=== PATIENT | male | born 2000 | race Two or more races ===

== ENCOUNTER 2021-02-27 09:14 | Emergency (ER) | payer OTHER ==
[~2021-02-27] VITALS: Ht 180.3 cm; Wt 74.6 kg
[2021-02-27] MEDS ORDERED: IV NORMAL SALINE 1000ML BAG 1,000 ML IV SCH (09:45)
--- NOTE | 2021-02-27 09:46 | PHYS DOC ---
Past Medical History Past Medical History: No Pertinent History Past Surgical History: No Surgical History Smoking Status: Current Every Day Smoker Additional Information: VAPES Alcohol Use: None General Adult EDM: Chief Complaint: ABDOMINAL PAIN HPI: HPI: Patient is a 20 year old male who presented to ER due to epigastric and periumbilical abdominal pain started at 3 AM this morning associated with some nausea. Patient denies any cough or fever. Patient denies any diarrhea. Patient denies any urinary symptoms. Patient denies drinking alcohol patient said he never had this pain before. Review of Systems: Review of Systems: Constitutional: Denies fever or chills. [] Eyes: Denies change in visual acuity. [] HENT: Denies nasal congestion or sore throat. [] Respiratory: Denies cough or shortness of breath. [] Cardiovascular: Denies chest pain or edema. [] GI: Positive for abdominal pain with nausea, no vomiting, no diarrhea : Denies dysuria. [] Musculoskeletal: Denies back pain or joint pain. [] Integument: Denies rash. [] Neurologic: Denies headache, focal weakness or sensory changes. [] Endocrine: Denies polyuria or polydipsia. [] Lymphatic: Denies swollen glands. [] Psychiatric: Denies depression or anxiety. [] Heart Score: C/O Chest Pain: N/A Risk Factors: Risk Factors: DM, Current or recent (<one month) smoker, HTN, HLP, family history of CAD, obesity. Risk Scores: Score 0 - 3: 2.5% MACE over next 6 weeks - Discharge Home Score 4 - 6: 20.3% MACE over next 6 weeks - Admit for Clinical Observation Score 7 - 10: 72.7% MACE over next 6 weeks - Early Invasive Strategies Current Medications: Current Medications Medications (Trade) Dose Ordered Sig/Brain Start Time Stop Time Status Last Admin Dose Admin Sodium Chloride 1,000 ml @ 1,000 mls/hr Q1H 02/27/21 09:45 02/27/21 10:44 Allergies: Allergies: Allergies Coded Allergies Type Severity Reaction Last Updated Verified No Known Drug Allergies 02/27/21 No Physical Exam: PE: Constitutional: Well developed, well nourished, no acute distress, non-toxic appearance. [] HENT: Normocephalic, atraumatic, bilateral external ears normal, oropharynx moist, no oral exudates, nose normal. [] Eyes: PERRLA, EOMI, conjunctiva normal, no discharge. [] Neck: Normal range of motion, no tenderness, supple, no stridor. [] Cardiovascular:Heart rate regular rhythm, no murmur [] Lungs & Thorax: Bilateral breath sounds clear to auscultation [] Abdomen: Bowel sounds normal, soft, There is tenderness in epigastric and periumbilical area, no masses, no pulsatile masses. [] Skin: Warm, dry, no erythema, no rash. [] Back: No tenderness, no CVA tenderness. [] Extremities: No tenderness, no cyanosis, no clubbing, ROM intact, no edema. [] Neurologic: Alert and oriented X 3, normal motor function, normal sensory function, no focal deficits noted. [] Psychologic: Affect normal, judgement normal, mood normal. [] Current Patient Data: Labs: Laboratory Tests Test 02/27/21 09:22 02/27/21 10:40 Urine Collection Type Unknown Urine Color Yellow Urine Clarity Clear Urine pH 6.5 Urine Specific [place] 1.020 Urine Protein Negative mg/dL Urine Glucose (UA) Negative mg/dL Urine Ketones (Stick) Negative mg/dL Urine Blood Negative Urine Nitrite Negative Urine Bilirubin Negative Urine Urobilinogen Dipstick 0.2 mg/dL Urine Leukocyte Esterase Negative Urine RBC 0 /HPF Urine WBC 0 /HPF Urine Squamous Epithelial Cells Few /LPF Urine Bacteria 0 /HPF White Blood Count 8.0 x10^3/uL Red Blood Count 5.22 x10^6/uL Hemoglobin 15.9 g/dL Hematocrit 46.1 % Mean Corpuscular Volume 88 fL Mean Corpuscular Hemoglobin 30 pg Mean Corpuscular Hemoglobin Concent 34 g/dL Red Cell Distribution Width 13.3 % Platelet Count 192 x10^3/uL Neutrophils (%) (Auto) 44 % Lymphocytes (%) (Auto) 40 % Monocytes (%) (Auto) 13 % Eosinophils (%) (Auto) 2 % Basophils (%) (Auto) 1 % Neutrophils # (Auto) 3.5 x10^3/uL Lymphocytes # (Auto) 3.2 x10^3/uL Monocytes # (Auto) 1.0 x10^3/uL Eosinophils # (Auto) 0.2 x10^3/uL Basophils # (Auto) 0.0 x10^3/uL Sodium Level 141 mmol/L Potassium Level 4.2 mmol/L Chloride Level 105 mmol/L Carbon Dioxide Level 28 mmol/L Anion Gap 8 Blood Urea Nitrogen 15 mg/dL Creatinine 0.9 mg/dL Estimated GFR (Cockcroft-Gault) 106.5 BUN/Creatinine Ratio 17 Glucose Level 95 mg/dL Calcium Level 9.4 mg/dL Magnesium Level 2.2 mg/dL Total Bilirubin 0.4 mg/dL Aspartate Amino Transf (AST/SGOT) 21 U/L Alanine Aminotransferase (ALT/SGPT) 19 U/L Alkaline Phosphatase 90 U/L Total Protein 7.1 g/dL Albumin 3.9 g/dL Albumin/Globulin Ratio 1.2 Lipase 76 U/L Current Medications Medications (Trade) Dose Ordered Sig/Brain Route PRN Reason Start Time Stop Time Status Last Admin Dose Admin Sodium Chloride 1,000 ml @ 1,000 mls/hr Q1H IV 02/27/21 09:45 02/27/21 10:44 DC 02/27/21 10:43 Iohexol (Omnipaque 300 Mg/ml) 75 ml 1X ONCE IV 02/27/21 11:30 02/27/21 11:31 DC Info (CONTRAST GIVEN -- Rx MONITORING) 1 each PRN DAILY PRN MC SEE COMMENTS 02/27/21 11:30 03/01/21 11:29 Famotidine (Pepcid Vial) 20 mg 1X ONCE IVP 02/27/21 11:30 02/27/21 11:31 DC 02/27/21 11:45 Multi-Ingredient Mouthwash/Gargle (Gi Cocktail) 20 ml 1X ONCE SWSW 02/27/21 12:00 02/27/21 12:01 DC 02/27/21 11:45 Vital Signs: Vital Signs Date Time Temp Pulse Resp B/P (MAP) Pulse Ox O2 Delivery O2 Flow Rate FiO2 02/27/21 09:28 97.3 59 20 142/59 99 Room Air 97.3 EKG: EKG: [] Radiology/Procedures: Radiology/Procedures: [][facility] [address] [place] [address] IMAGING REPORT Signed PATIENT: ROSY AGUILAR ACCOUNT: [id number] : 2000 LOCATION: ER AGE: 20 SEX: M EXAM STATUS: REG ER ORD. PHYSICIAN: BERTRAND HUYNH DO REASON: periumbilical abdominal pain since 3 am today PROCEDURE: CT ABD PELV W/ IV CONTRST ONLY EXAMINATION: CT abdomen and pelvis with IV contrast. INDICATION:20 years, Male, periumbilical abdominal pain since 3:00 AM. TECHNIQUE: Axial CT images of the abdomen and pelvis were obtained. Coronal and sagittal reformatted performed. COMPARISON: None. Exposure: One or more of the following individualized dose reduction techniques were utilized for this examination: 1. Automated exposure control 2. Adjustment of the mA and/or kV according to patient size 3. Use of iterative reconstruction technique. FINDINGS: LOWER CHEST: Unremarkable ABDOMEN/PELVIS: Liver, gallbladder, biliary ducts, spleen, pancreas, adrenals and kidneys are unremarkable. No bowel obstruction or wall thickening. Normal appendix. Normal caliber abdominal aorta. Mesenteric arteries and portal vein are patent. No lymphadenopathy in the abdomen or pelvis by size criteria. No pneumoperitoneum or ascites. Unremarkable urinary bladder and prostate. No pelvic masses. MUSCULOSKELETAL: No acute osseous process. IMPRESSION: No acute abnormality in the abdomen or pelvis. Electronically signed by: Kaylee Rivera MD (02/27/2021 11:42 AM) [id number] DICTATED and SIGNED BY: KAYLEE RIVERA MD DATE: 02/27/21 [id number] Course & Med Decision Making: Course & Med Decision Making Pertinent Labs and Imaging studies reviewed. (See chart for details) Patient is a 20-year-old male who present to ER due to epigastric, CT scan abdomen pelvis did not show any acute problem, levels were normal. Patient symptoms are consistent with acute gastritis. Patient will prescribe Carafate an d Prilosec to take home. Patient was discharged home in stable condition. Patient will need to follow-up with family physician for reevaluation , he was amenable to plan of care Davie Disclaimer: Davie Disclaimer: This electronic medical record was generated, in whole or in part, using a voice recognition dictation system. Departure Departure Impression: Primary Impression: Gastritis Disposition: HOME / SELF CARE / HOMELESS Condition: IMPROVED Patient Instructions: Gastritis, Adult Additional Instructions: Thank you for visiting our Emergency Department. We appreciate you trusting us with your care. If any additional problems come up don't hesitate to return to visit us. Please follow up with your primary care provider so they can plan additional care if needed and know about the problem that you had. If symptoms worsen come back to the Emergency Department. Any concerning symptoms that start such as chest pain, shortness of air, weakness or numbness on one side of the body, running high fevers or any other concerning symptoms return to the ER. Please follow up with [facility] this week. [address], [address] [place] [address] Phone number: [phone] Scripts Omeprazole Magnesium (PRILOSEC OTC) 20 Mg Tablet. 1 TAB PO DAILY for 30 Days, #30 TAB 0 Refills Prov: BERTRAND HUYNH DO 02/27/21 Sucralfate (CARAFATE) 1 Gm Tablet 1 TAB PO QID for 14 Days, #56 TAB 0 Refills Prov: BERTRAND HUYNH DO 02/27/21 BERTRAND HUYNH DO Feb 27, 2021 09:46
[2021-02-27 10:18] LABS: BILIRUBIN,URINE NEGATIVE (NEG); CLARITY,URINE CLEAR; COLOR,URINE YELLOW; NITRITE,URINE NEGATIVE (NEG); PH,URINE 6.5 (<5.0-8.0); PROTEIN,URINE NEGATIVE (NEG-TRACE); UROBILINOGEN,URINE 0.2 mg/dL (0.2 mg/dL)
[2021-02-27 10:43] LABS: BACTERIA,URINE 0 /HPF (0-FEW); RBC,URINE 0 /HPF (0-2); WBC,URINE 0 /HPF (0-4)
[2021-02-27 11:07] LABS: BASO % 1 % (0-3); EOS # 0.2 x10^3/uL (0.0-0.7); EOS % 2 % (0-3); HEMATOCRIT 46.1 % (39.0-53.0); HEMOGLOBIN 15.9 g/dL (13.0-17.5); LYMPH # 3.2 x10^3/uL (1.0-4.8); LYMPH % 40 % (24-48); MEAN CORPUSCULAR HEMOGLOBIN 30 pg (25-35); MEAN CORPUSCULAR HGB CONC 34 g/dL (31-37); MEAN CORPUSCULAR VOLUME 88 fL (79-100); MONO % 13 % (0-9); NEUT # 3.5 x10^3/uL (1.8-7.7); NEUT % 44 % (31-73); PLATELET COUNT 192 x10^3/uL (140-400); RED BLOOD COUNT 5.22 x10^6/uL (4.30-5.70); RED CELL DISTRIBUTION WIDTH 13.3 % (11.5-14.5)
[2021-02-27 11:12] LABS: CALCIUM 9.4 mg/dL (8.5-10.1); CREATININE 0.9 mg/dL (0.7-1.3); GFR 106.5; POTASSIUM 4.2 mmol/L (3.5-5.1)
[2021-02-27 11:21] LABS: ALBUMIN 3.9 g/dL (3.4-5.0); ALBUMIN/GLOBULIN RATIO 1.2 (1.0-1.7); MAGNESIUM 2.2 mg/dL (1.8-2.4); TOTAL BILIRUBIN 0.4 mg/dL (0.2-1.0); TOTAL PROTEIN 7.1 g/dL (6.4-8.2)
[2021-02-27] MEDS ORDERED: FAMOTIDINE 20 MG/2 ML VIAL IVP ONE (11:30)
[2021-02-27] MEDS ORDERED: CONTRAST GIVEN. MC PRN (11:30)
[2021-02-27] MEDS ORDERED: IOHEXOL 300 MG/ML 100ML VIAL. IV ONE (11:30)
--- NOTE | 2021-02-27 11:44 | RAD ---
EXAMINATION: CT abdomen and pelvis with IV contrast. INDICATION:20 years, Male, periumbilical abdominal pain since 3:00 AM. TECHNIQUE: Axial CT images of the abdomen and pelvis were obtained. Coronal and sagittal reformatted performed. COMPARISON: None. Exposure: One or more of the following individualized dose reduction techniques were utilized for thi s examination: 1. Automated exposure control 2. Adjustment of the mA and/or kV according to patient size 3. Use of iterative reconstruction technique. FINDINGS: LOWER CHEST: Unremarkable ABDOMEN/PELVIS: Liver, gallbladder, biliary ducts, spleen, pancreas, adrenals and kidneys are unremarkable. No bowel obstruction or wall thickening. Normal appendix. Normal caliber abdominal aorta. Mesenteric arteries and portal vein are patent. No lymphadenopathy in the abdomen or pelvis by size criteria. No pneumope ritoneum or ascites. Unremarkable urinary bladder and prostate. No pelvic masses. MUSCULOSKELETAL: No acute osseous process. IMPRESSION: No acute abnormality in the abdomen or pelvis. Electronically signed by: Perico Rivera MD (02/27/2021 11:42 AM) [id number]
[2021-02-27] MEDS ORDERED: LIDO:MAALOX 1:1 20 ML SINGLE DOSE. SWSW ONE (12:00)
[2021-02-27] MEDS ORDERED: OMEP20TA63 PO (12:38)
[2021-02-27] MEDS ORDERED: SUCR1TAB35 PO (12:38)
[2021-02-27 12:42] VITALS: BP 107/59
== END 2021-02-27 12:55 | disposition home or self-care (01) ==
LOC: ER 09:14
DX: K29.70 Gastritis, unspecified, without bleeding (principal); F17.200 Nicotine dependence, unspecified, uncomplicated
CPT/HCPCS: 36415; 74177; 80053; 81001; 83690; 83735; 85025; 96361; 96374; 99285; J3490; J7030

== ENCOUNTER 2021-03-01 19:15 | Emergency (ER) | payer OTHER ==
[~2021-03-01] VITALS: Ht 180.3 cm; Wt 70.0 kg
[~2021-03-01 19:15] MED LIST: OMEP20TA63 PO; SUCR1TAB35 PO
[2021-03-01] MEDS ORDERED: DIPH,PERTUSS(ACELL),TET VAC/PF 0.5 ML SYRINGE. VAX IM ONE (22:00)
[2021-03-01] MEDS ORDERED: IBUPROFEN 200 MG TABLET. PO ONE (22:00)
--- NOTE | 2021-03-01 22:18 | RAD ---
Examination: 2 views of the left humerus and 3 views of the left wrist HISTORY: History of fall COMPARISON: None available FINDINGS: The alignment of the left humerus grossly appears unremarkable. The alignment of the carpal joints gr ossly appears unremarkable. There is no acute fracture or dislocation identified. IMPRESSION: No acute osseous findings Electronically signed by: Alex Strickland MD (03/01/2021 10:15 PM) [id number]
[2021-03-01] MEDS ORDERED: BACITRACIN TOPICAL OINT PACKET. TP ONE (22:30)
--- NOTE | 2021-03-01 23:40 | PHYS DOC ---
Past Medical History Past Medical History: No Pertinent History (INDY CANO APRN) Past Surgical History: No Surgical History (INDY CANO APRN) Smoking Status: Current Every Day Smoker Alcohol Use: None (INDY CANO APRN) General Adult EDM: Chief Complaint: ELBOW PROBLEM HPI: HPI: Patient is a 20 year old male who presents emergency department with chief complaint of left upper arm and left wrist pain after tripping and falling out of his front door at approximately 1700 this evening. Patient denies numbness or tingling to the arm, rates his pain a 7 out of 10 pain, states he does have a skin scratch on his left shoulder, states his last tetanus immunization was greater than 5 years ago, states he did not take any pain medication prior to arrival to the emergency department today. Patient denies hitting his head, denies loss of consciousness, denies pain or injury to any other part of his body. Patient denies any other physical complaints or physical concerns, patient denies smoking cigarettes, drinking alcohol, or illicit drug use. (INDY CANO APRN) Review of Systems: Review of Systems: 14 body systems of review of systems have been reviewed. See HPI for pertinent positives and negative responses, otherwise all other systems are negative, nonpertinent or noncontributory. Constitutional: Negative except as outlined in HPI above. Skin: Negative except as outlined in HPI above. Eyes: Negative except as outlined in HPI above. HENT: Negative except as outlined in HPI above. Respiratory: Negative except as outlined in HPI above. Cardiovascular: Negative except as outlined in HPI above. GI: Negative except as outlined in HPI above. : Negative except as outlined in HPI above. Musculoskeletal: Negative except as outlined in HPI above. Integument: Negative except as outlined in HPI above. Neurologic: Negative except as outlined in HPI above. Endocrine: Negative except as outlined in HPI above. Lymphatic: Negative except as outlined in HPI above. Psychiatric: Negative except as outlined in HPI above. (INDY CANO APRN) Heart Score: C/O Chest Pain: No Risk Factors: Risk Factors: DM, Current or recent (<one month) smoker, HTN, HLP, family history of CAD, obesity. Risk Scores: Score 0 - 3: 2.5% MACE over next 6 weeks - Discharge Home Score 4 - 6: 20.3% MACE over next 6 weeks - Admit for Clinical Observation Score 7 - 10: 72.7% MACE over next 6 weeks - Early Invasive Strategies (INDY CANO APRN) Current Medications: Current Medications Medications (Trade) Dose Ordered Sig/Brain Start Time Stop Time Status Last Admin Dose Admin Bacitracin (Bacitracin Zinc Oint Pkt) 1 pkt 1X ONCE 03/01/21 22:30 03/01/21 22:33 DC 03/01/21 22:38 1 PKT Diphtheria/ Tetanus/Acell Pertussis (ADACEL TDap SYRINGE) 0.5 ml ONCE ONCE 03/01/21 22:00 03/01/21 22:01 DC 03/01/21 22:10 0.5 ML Ibuprofen (Motrin) 600 mg 1X ONCE 03/01/21 22:00 03/01/21 22:01 DC 03/01/21 22:11 600 MG (INDY CANO APRN) Allergies: Allergies: Allergies Coded Allergies Type Severity Reaction Last Updated Verified No Known Drug Allergies 02/27/21 No (INDY CANO APRN) Physical Exam: PE: Constitutional: Well developed, well nourished, no acute distress, non-toxic appearance. 20-year-old male in no apparent distress. HENT: Normocephalic, atraumatic. Eyes: Conjunctiva normal, no discharge. Neck: Normal range of motion, no stridor. Cardiovascular: No cyanosis appreciated, distal cap refill less than 2 seconds. Lungs & Thorax: Patient is in no respiratory distress, no audible adventitious lung sounds appreciated. Abdomen: Nontender, no abnormalities noted. Skin: Warm, dry, no erythema, no rash. Abrasion to left anterior shoulder. No bleeding appreciated, no infectious process appreciated. Back: No tenderness, no deformities. Extremities: No tenderness, no cyanosis, no clubbing, ROM intact, no edema. Pain to palpation of the distal aspect of left humerus, no deformity appreciated, no bruising appreciated, no swelling or edema appreciated, no pain with AROM/PROM of shoulder joint elbow joint wrist joint or finger joints of the left upper extremity, patient does complain of pain to the left wrist with palpation along the proximal anterior aspect, no deformity, no swelling, no bruising or ecchymosis appreciated. Distal cap refill less than 2 seconds, 2+ radial pulses. Neurologic: Alert and oriented X 3, normal motor function, normal sensory function, no focal deficits noted. Psychologic: Affect normal, judgement normal, mood normal. (INDY CANO APRN) Current Patient Data: Vital Signs: Vital Signs Date Time Temp Pulse Resp B/P (MAP) Pulse Ox O2 Delivery O2 Flow Rate FiO2 03/01/21 21:35 75 18 138/62 (87) 97 Room Air 03/01/21 21:30 98.2 98.2 (INDY CANO APRN) EKG: EKG: [] (INDY CANO APRN) Radiology/Procedures: Radiology/Procedures: [] (INDY CANO APRN) Course & Med Decision Making: Course & Med Decision Making Pertinent Labs and Imaging studies reviewed. (See chart for details) 20-year-old male, vital signs reviewed, presents emergency department after a stumble and fall out of his front door at approximately 730 this evening. Physical examination concerning for bony injury versus contusion of left upper extremity humerus and wrist, abrasion to left shoulder. The patient's tetanus status will be brought up-to-date today in the emergency department with Adacel/Tdap, cleanse abrasion and apply bacitracin ointment with bandage, x-ray left humerus and wrist. Patient given 600 mg ibuprofen for pain. X-ray imaging none concerning for acute fracture, discussed with patient most likely contusion from fall, will order ice pack, Jluis wrap, recommended RICE therapy, follow-up with PCP this week. Patient gave verbal understanding discharge home instructions, follow-up PCP, return to ER precautions or concerns, had no further questions or concerns and was discharged home without incident. (INDY CANO APRN) Course & Med Decision Making Patients Care and treatment plan provided by ER Nurse Practitioner. I was available for consult. Patient's chart reviewed. (MARTÍN BARTON DO) Davie Disclaimer: Davie Disclaimer: This electronic medical record was generated, in whole or in part, using a voice recognition dictation system. (INDY CANO APRN) Departure Departure Impression: Primary Impression: Contusion of left upper arm Qualified Codes: S40.022A - Contusion of left upper arm, initial encounter Additional Impressions: Abrasion of left shoulder Qualified Codes: S40.212A - Abrasion of left shoulder, initial encounter Contusion of left wrist Qualified Codes: S60.212A - Contusion of left wrist, initial encounter Fall Qualified Codes: W19.XXXA - Unspecified fall, initial encounter Need for Tdap vaccination Disposition: HOME / SELF CARE / HOMELESS Condition: GOOD Referrals: UNKNOWN PCP NAME (PCP) Patient Instructions: Contusion, Elastic Bandage and RICE Additional Instructions: You were seen today in the emergency department after a fall out of your front door at approximately 730 this evening. An x-ray was performed of your left upper arm and wrist, there were no signs of fracture or injury of your bones. I believe your pain is from the break of your fall causing a contusion which can be very sore, please continue to take ibuprofen or Tylenol as needed for pain, ice packs 30 minutes on and 30 minutes off while awake, you may use Jluis wrap and arm sling for discomfort, please follow-up with your primary care physician this week for ongoing pain management. Please return to the emergency department for worsening symptoms or other concerns, the pleasure take care of you today in the emergency department and I thank you for allowing me to participate in your emergency room health care needs. EMERGENCY DEPARTMENT GENERAL DISCHARGE INSTRUCTIONS Thank you for coming to [facility] Emergency Department (ED) today and trusting us with you care. We trust that you had a positive experience in our Emergency Department. If you wish to speak to the department management, you may call the Director at [phone]. YOUR FOLLOW UP INSTRUCTIONS ARE FOLLOWS: 1. Do you have a private Doctor? If you do not have a private doctor, please ask for a resource list of physicians or clinics that may be able to assist you with follow up care. 2. The Emergency Physicain has interpreted your x-rays. The X-Ray specialist will also review them. If there is a change in the findings, you will be notified in 48 hours when at all possible. 3. A lab test or culture has been done, your results will be reviewed and you will be notified if you need a change in treatment. ADDITIONAL INSTRUCTIONS AND INFORMATION: 1. Your care today has been supervised by a physician who is specially trained in emergency care. Many problems require more than one evaluation for a complete diagnosis and treatment. We recommend that you schedule your follow up appointment as recommended to ensure complete treatment of you illness or injury. If you are unable to obtain follow up care and continue to have a problem, or if your condition worsens, we recommend that you return to the ED. 2. We are not able to safely determine your condition over the phone nor are we able to give sound medical advice over the phone. For these safety reasons, if you call for medical advice we will ask you to come to the ED for further evaluation. 3. If you have any questions regarding these discharge instructions please call the ED at [phone]. SAFETY INFORMATION: In the interest of safety, wellness, and injury prevention; we encourage you to wear your sealbelt, if you smoke; quite smoking, and we encourage family to use a protective helmet for bicycling and other sporting events that present an increased risk for head injury. IF YOUR SYMPTOMS WORSEN OR NEW SYMPTOMS DEVELOP, OR YOU HAVE CONCERNS ABOUT YOUR CONDITION; OR IF YOUR CONDITION WORSENS WHILE YOU ARE WAITING FOR YOUR FOLLOW UP APPOINTMENT; EITHER CONTACT YOUR PRIMARY CARE DOCTOR, THE PHYSICIAN WHOSE NAME AND NUMBER YOU WERE GIVEN, OR RETURN TO THE ED IMMEDIATELY. INDY CANO APRN Mar 01, 2021 23:39 MARTÍN BARTON DO Mar 04, 2021 03:48
[2021-03-02] VITALS: BP 132/62
== END 2021-03-02 00:04 | disposition home or self-care (01) ==
LOC: ER 19:15
DX: S40.022A Contusion of left upper arm, initial encounter (principal); S60.212A Contusion of left wrist, initial encounter; S40.212A Abrasion of left shoulder, initial encounter; F17.200 Nicotine dependence, unspecified, uncomplicated; W01.0XXA Fall on same level from slipping, tripping and stumbling without subsequent striking against object, initial encounter; Y93.89 Activity, other specified; Y92.89 Other specified places as the place of occurrence of the external cause; Y99.8 Other external cause status
CPT/HCPCS: 73060; 73120; 90471; 90715; 99284; A4565